=== PATIENT | female | born 1940 | race Caucasian/White ===

== ENCOUNTER 2020-04-21 16:32 | Emergency (ER) | payer MEDICARE, OTHER ==
[~2020-04-21] VITALS: Ht 170.2 cm; Wt 68.0 kg
--- OUTSIDE RECORDS SUMMARY | 2020-04-21 16:35 | XMS REPORT | Continuity of Care Document ---
Author Author [facility] Address [address] [place] [address] Phone Unavailable Care Team Providers Care Emergency Services Dispatcher Name Role Phone Unavailable Unavailable Payers Payer Name Policy Type Policy Number Effective Date Expiration Date S ource Problems This patient has no known problems. Allergies, Adverse Reactions, Alerts This patient has no known allergies or adverse reactions. Medications This patient has no known medications. Procedures This patient has no known procedures. Results This patient has no known results.
--- NOTE | 2020-04-21 17:34 | Diagnostic Imaging Report ---
EXAMINATION: CXR 1 W - [facility] INDICATION: cough/fever COMPARISON: None FINDINGS: TUBES and LINES: None. LUNGS: Lungs are mildly hyperinflated. Mild bronchial wall thickening. Mild patchy opacity in the left lung base with volume loss, likely atelectasis or scarring. No evidence of lobar consolidation or pulmonary edema. PLEURA: No pleural effusion or pneumothorax. HEART AND MEDIASTINUM: The cardiomediastinal silhouette is unremarkable. There are atherosclerotic calcifications within the aorta. Prominent right pericardiac fat pad. BONES AND SOFT TISSUES: No acute osseous lesion. Surgical clips project over the bilateral axilla. UPPER ABDOMEN: No free air under the diaphragm. 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 No evidence of pneumonia. Signed by: Dr. Argentina Edge MD on 04/21/2020 5:31 PM
[2020-04-21] MEDS ORDERED: AZITHROMYCIN500 M3 PO (19:00)
[2020-04-21] MEDS ORDERED: PROAIR HFA INH8.5 GM PO (19:00)
[2020-04-21] MEDS ORDERED: PREDNISONE20 MG PO (19:00)
[2020-04-21] MEDS ORDERED: ALBUTEROL2.5 MG/3 M PO (19:00)
[2020-04-21] MEDS ORDERED: CEFDINIR300 MG PO (19:00)
[2020-04-21] MEDS ORDERED: BROMFED DM COU118 ML PO (19:00)
--- NOTE | 2020-04-21 19:00 | Emergency Department Note ---
History of Present Illnes History of Present Illness Chief Complaint: cough, wheezing History of Present Illness This is a 79 year old female . Historian: Patient History limited by: condition of the patient (normal) Gift Shop Manager Required: No Onset (how long ago): day(s) (7) Location: n/a Quality: n/a Radiation: non-radiation Severity: moderate Onset quality: gradual Duration (how long): week(s) (1) Timing of current episode: intermittent Progression: waxing and waning Chronicity: new Context: recent illness, recent surgery, recent immobilization, recent travel, trauma/injury, new medications, hx of DVT/PE Relieving factors: none Exacerbating factors: none Associated symptoms: cough Treatments prior to arrival: none Past Medical/Family History Physician Review I have reviewed the patient's past medical and family history. Any updates have been documented here. Past Medical History Recent Fever: No Clinical Suspicion of Infectio: No New/Unexplained Change in Ment: No Past Medical History: None Past Surgical History: None Social History Smoking Cessation: Never Smoker Counseling Performed: No Alcohol Use: Social Any Illegal Drug Use: No TB Exposure/Symptoms: No Physically hurt or threatened: No Family History Family history of heart diseas: No Other Any Pre-Existing Lines (PICC,: No Is patient up to date on immun: No Review of Systems Review of Systems Constitutional: no symptoms EENTM: no symptoms Cardiovascular: no symptoms Respiratory: as per HPI Gastrointestinal: no symptoms Genitourinary: no symptoms Musculoskeletal: no symptoms Neurological: no symptoms Psychological: no symptoms Endocrine: no symptoms Hematological/Lymphatic: no symptoms Review of other systems All other systems reviewed and negative. Physical Exam Related Data Allergies: Coded Allergies: No Known Allergies (Unverified , 04/21/20) Vital signs reviewed: Yes Physical Exam CONSTITUTIONAL Constitutional: well-developed, well-nourished HENT HENT: normocephalic, atraumatic, oropharynx clear/moist, nose normal HENT L/R: left ext ear normal, right ext ear normal EYES Eyes: PERRL, conjunctivae normal NECK Neck: ROM normal, supple PULMONARY Pulmonary: effort normal, other (forced expiratory wheezes) CARDIOVASCULAR Cardiovascular: regular rhythm, heart sounds normal, capillary refill normal, normal rate GASTROINTESTINAL Abdominal: soft, nontender, bowel sounds normal GENITOURINARY Genitourinary: exam deferred SKIN Skin: warm, dry MUSCULOSKELETAL Musculoskeletal: ROM normal NEUROLOGICAL Neurological: alert, oriented x 3, no gross motor or sensory deficits PSYCHOLOGICAL Psychological: mood/affect normal, judgement normal Results Imaging Imaging results reviewed: Yes (cxr wnl) Critical Care Time Subsequent provider I assumed direction of critical care for this patient from another provider of my specialty. Assessment & Plan Reassessment Reassessment spoke to pt at 830am on 04/22/20, told pt about negative covid 19 test Assessment & Plan Final Impression: (1) COPD exacerbation (2) Acute bronchitis Assessment & Plan azithromycin, cefdinir, prednisone, albuterol, bromfed Depart Disposition: HOME, SELF-nursing home Meds Active Scripts D-Methorphan Hb/P-Epd Hcl/Bpm (BROMFED DM COUGH SYRUP) 118 Ml Syrup, 10 ML PO Q4HR PRN for COUGH, #240 ML PRN COUGH(USE ALBUTEROL FIRST), CONGESTION, ALLERGY SYMPTOMS Prov:ANÍBAL GLEASON 04/21/20 Cefdinir (OMNICEF) 300 Mg Capsule, 300 MG PO Q12H, #20 CAP Prov:ANÍBAL GLEASON 04/21/20 Azithromycin (AZITHROMYCIN) 500 Mg Vial.port, 500 MG PO DAILY, #4 TAB Prov:ANÍBAL GLEASON 04/21/20 Prednisone (PREDNISONE) 20 Mg Tab, 60 MG PO DAILY, #18 TAB Prov:ANÍBAL GLEASON 04/21/20 Albuterol Sulf* (PROAIR HFA INHALER*) 8.5 Gm Inh, 2 INH PO Q4HR PRN for COUGH, #1 INH PRN COUGH, WHEEZING , SHORTNESS OF BREATH Prov:ANÍBAL GLEASON 04/21/20 Albuterol Sulfate (ALBUTEROL SULFATE) 2.5 Mg/3 Ml Vial.neb, 2.5 MG PO Q4HR PRN for COUGH, #120 UNIT prn cough, wheezing, shortness of breath Prov:ANÍBAL GLEASON 04/21/20 ANÍBAL GLEASON Apr 21, 2020 19:00
== END 2020-04-21 19:26 | disposition home or self-care (01) ==
LOC: FSED 16:32
DX: R05 Cough (principal); J44.1 Chronic obstructive pulmonary disease with (acute) exacerbation; J20.9 Acute bronchitis, unspecified; Z11.59 Encounter for screening for other viral diseases
CPT/HCPCS: 71045; 81003; 83518; 87400; 87635; 99283

== ENCOUNTER 2022-10-11 08:40 | Emergency (ER) | payer MEDICARE ==
[~2022-10-11] VITALS: Ht 172.7 cm; Wt 74.4 kg
[~2022-10-11 08:40] MED LIST: ALBUTEROL2.5 MG/3 M PO; AZITHROMYCIN500 M3 PO; BROMFED DM COU118 ML PO; CEFDINIR300 MG PO; PREDNISONE20 MG PO; PROAIR HFA INH8.5 GM PO
[2022-10-11] MEDS ORDERED: AMLODIPINE BESY10 MG PO (08:55)
[2022-10-11] MEDS ORDERED: SIMVASTATIN20 MG PO (08:55)
[2022-10-11] MEDS ORDERED: CIPRO500 MG PO (09:06)
== END 2022-10-11 09:18 | disposition home or self-care (01) ==
LOC: FSED 08:48
DX: R30.0 Dysuria (principal); N39.0 Urinary tract infection, site not specified; I10 Essential (primary) hypertension; E78.5 Hyperlipidemia, unspecified; Z85.3 Personal history of malignant neoplasm of breast
CPT/HCPCS: 81003; 99283

== ENCOUNTER 2023-03-02 16:28 | Observation (INO) | payer MEDICARE ==
[~2023-03-02] VITALS: Ht 172.7 cm; Wt 73.0 kg
[~2023-03-02 16:28] MED LIST changes: +AMLODIPINE BESY10 MG PO; +CIPRO500 MG PO; +SIMVASTATIN20 MG PO
[2023-03-02] MEDS ORDERED: CALTRATE PLUS1 EACH (17:11)
[2023-03-02] MEDS ORDERED: ASPIRIN EC81 MG PO (17:11)
[2023-03-02] MEDS ORDERED: LOTREL 10-20 M1 EACH (17:11)
[2023-03-02] MEDS ORDERED: ONDANSETRON HCL INJ 2MG/ML 2ML 2 MG/ML VIAL IV STA (17:43)
[2023-03-02] MEDS ORDERED: MECLIZINE HCL 12.5 MG TAB PO ONE (17:45)
[2023-03-02] MEDS ORDERED: SODIUM CHLORIDE 0.9% 1000ML 1,000 ML IV SCH (17:45)
[2023-03-02] MEDS ORDERED: ONDANSETRON HCL INJ 2MG/ML 2ML 2 MG/ML VIAL ONE (17:51)
[2023-03-02] MEDS ORDERED: MECLIZINE HCL 12.5 MG TAB ONE (17:51)
[2023-03-02] MEDS ORDERED: SODIUM CHLORIDE 0.9% 1000ML 1,000 ML ONE (17:52)
[2023-03-02] MEDS ORDERED: ONDANSETRON HCL INJ 2MG/ML 2ML 2 MG/ML VIAL IV PRN (20:15)
[2023-03-02 22:03] VITALS: BP 154/67
[2023-03-02 22:23] VITALS: BP 154/67
[2023-03-02] MEDS: MECLIZINE HCL 12.5 MG TAB PO SCH (23:51)
[2023-03-02] MEDS: SODIUM CHLORIDE 0.9% 1000ML 1,000 ML IV SCH (23:57)
[2023-03-03] VITALS (7 sets, daily range): BP systolic 133–159; BP diastolic 54–68
[2023-03-03] MEDS: MECLIZINE HCL 12.5 MG TAB PO SCH ×4 (05:44→23:18)
[2023-03-03] MEDS: SODIUM CHLORIDE 0.9% 1000ML 1,000 ML IV SCH (05:45)
[2023-03-03 07:25] LABS: BASOPHILS # (AUTO) 0.1 (0.0-0.1); BASOPHILS % 1.4 % (0.0-1.0); EOSINOPHILS # (AUTO) 0.1 (0.0-0.4); EOSINOPHILS % 1.2 % (0.0-6.0); HEMATOCRIT 36.4 % (34.2-44.1); HEMOGLOBIN 11.6 g/dL (12.0-16.0); LYMPHOCYTES # (AUTO) 1.4 (1.0-3.2); LYMPHOCYTES % 25.4 % (18.0-39.1); MEAN CORPUSCULAR HEMOGLOBIN 29.7 pg (28-32); MEAN CORPUSCULAR HGB CONC 31.9 g/dL (31-35); MEAN CORPUSCULAR VOLUME 93.3 fL (81-99); MONOCYTES # (AUTO) 0.5 (0.2-0.8); MONOCYTES % 9.4 % (4.4-11.3); NEUTROPHILS # (AUTO) 3.5 (2.1-6.9); NEUTROPHILS % 62.2 % (38.7-80.0); PLATELET COUNT 283 x10e3/uL (140-360); RED CELL DISTRIBUTION WIDTH 13.3 % (11.7-14.4)
[2023-03-03 07:55] LABS: ALBUMIN 3.6 g/dL (3.5-5.0); ALBUMIN/GLOBULIN RATIO 1.2 (0.8-2.0); CALCIUM 8.7 mg/dL (8.4-10.2); CREATININE, SERUM 0.72 mg/dL (0.57-1.11)
[2023-03-03] MEDS: ASPIRIN 81 MG ENTERIC COATED PO SCH (10:17)
[2023-03-03] MEDS ORDERED: ACETAMINOPHEN 325 MG TAB PO PRN (12:00)
[2023-03-03] MEDS: CHOLESTYRAMINE 4 GM PACKET PO PRN (18:45)
[2023-03-03] MEDS ORDERED: SIMVASTATIN 40 MG TAB PO SCH (21:00)
[2023-03-04] VITALS: BP 148/65
[2023-03-04 01:50] VITALS: BP 148/65
[2023-03-04 04:00] VITALS: BP 134/55
[2023-03-04] MEDS: CHOLESTYRAMINE 4 GM PACKET PO PRN (05:39)
[2023-03-04] MEDS: MECLIZINE HCL 12.5 MG TAB PO SCH (05:41)
[2023-03-04 08:00] VITALS: BP 134/58
[2023-03-04] MEDS: ASPIRIN 81 MG ENTERIC COATED PO SCH (08:26)
[2023-03-04 11:00] VITALS: BP 131/57
== END 2023-03-04 11:03 | disposition home or self-care (01) ==
LOC: FSED 16:38 → ERHOLD 20:10 → MED/SURG3 21:34
PROVIDERS: ADMIT Internal Medicine; ATTEND Internal Medicine
DX: H81.10 Benign paroxysmal vertigo, unspecified ear (principal); E78.5 Hyperlipidemia, unspecified; Z85.3 Personal history of malignant neoplasm of breast; Z86.718 Personal history of other venous thrombosis and embolism; Z79.01 Long term (current) use of anticoagulants; Z90.13 Acquired absence of bilateral breasts and nipples; I44.7 Left bundle-branch block, unspecified; Z20.822 Contact with and (suspected) exposure to COVID-19; I10 Essential (primary) hypertension
CPT/HCPCS: 36415; 70450; 70551; 80053 ×2; 81003; 82553; 84484; 85025 ×2; 85379; 87324; 87449; 93005; 93306; 93880; 96374; 99284; G0378 ×3; J2405 ×2; J7030 ×2; J8597 ×2; U0002